=== PATIENT | male | born 1970 | race Caucasian/White ===

== ENCOUNTER → 2016-04-24 | Outpatient (REF) | payer BC | LOC: M SMT 17:07 | PROVIDERS: ATTEND Nurse Practitioner Women's Health | DX: R31.0 Gross hematuria (principal) ==

== ENCOUNTER → 2016-05-02 | Outpatient (CLI) | payer BC ==
[~2016-05-02] MED LIST: ISOVUE-370 76% 100ML VIAL (Q9967) As Ordered ONE
--- NOTE | 2016-05-03 04:27 | REP ---
Clinical: Hematuria. Technique: Axial precontrast, contrast enhanced, and delayed images of the abdomen and pelvis using 100 ml Isovue 370 intravenous contrast material with coronal and sagittal re-formations. Comparison: 07/23/2015. Findings: Evaluation of the urinary tract system demonstrates normal bilateral kidneys, ureters and bladder. Symmetric enhancement and excretion patterns are noted bilaterally. No perinephric stranding, hydroureteronephrosis, intrarenal or obstructing ureteral calculi are identified. No evidence for renal cyst or mass lesion. Liver, spleen, pancreas, gallbladder, and bilateral adrenal glands are normal. The enteric system is without obstruction or acute inflammatory process and a normal terminal ileum and appendix are identified in the right lower quadrant. Scattered sigmoid diverticula noted without acute diverticulitis. Pelvis demonstrates normal bladder and age appropriate prostate/seminal vesicles. Small fat containing right inguinal hernia is unchanged. No pelvic fluid or ascites. No intraperitoneal or retroperitoneal adenopathy. No free air. Vasculature including abdominal aorta appear normal. Surrounding musculoskeletal structures are intact. Lung bases are clear. Impression: Normal urinary tract system. Few scattered sigmoid diverticula without acute diverticulitis. No further acute intra-abdominal or pelvic pathology appreciated. Signed by Yassine Barker MD 05/03/2016 04:17 A
== END ==
LOC: M RAD 16:30
PROVIDERS: ATTEND Nurse Practitioner Women's Health
DX: R31.0 Gross hematuria (principal)
CPT/HCPCS: 74178; Q9967

== ENCOUNTER → 2018-01-04 | Outpatient (REF) | payer BC | LOC: M SFHCPLAZ 12:22 | DX: Z13.220 Encounter for screening for lipoid disorders (principal); Z13.1 Encounter for screening for diabetes mellitus ==

== ENCOUNTER → 2018-03-02 | Outpatient (CLI) | payer OTHER ==
[2018-03-02 17:28] LABS: ALBUMIN/GLOBULIN RATIO 1.33 (1.00-1.93); ALKALINE PHOSPHATASE 124 U/L (45-117); ALT/SGPT 57 U/L (12-78); ANION GAP 9 MEQ/L (8-16); AST/SGOT 26 U/L (7-37); BILIRUBIN,TOTAL 0.9 MG/DL (0.2-1.0); BLOOD UREA NITROGEN 16 MG/DL (7-18); CALCIUM LEVEL 8.5 MG/DL (8.5-10.1); CARBON DIOXIDE LEVEL 34 MEQ/L (21-32); CHLORIDE LEVEL 100 MEQ/L (98-107); CHOLESTEROL LEVEL 178 MG/DL (<200); CHOLESTEROL RISK RATIO 5.933 (<5); CREATININE FOR GFR 1.16 MG/DL (0.70-1.30); GLOMERULAR FILTRATION RATE > 60.0 (>60); GLUCOSE, FASTING 84 MG/DL (70-100); HDL CHOLESTEROL 30 MG/DL (>40); LDL CHOLESTEROL 104 MG/DL (<100); NON-HDL-C 148 MG/DL; POTASSIUM SERUM 3.3 MEQ/L (3.5-5.1); SODIUM LEVEL 143 MEQ/L (136-145); TRIGLYCERIDES LEVEL 221 MG/DL (<150)
== END ==
LOC: M WUC 10:22
DX: Z13.1 Encounter for screening for diabetes mellitus (principal); Z13.220 Encounter for screening for lipoid disorders
CPT/HCPCS: 80053

== ENCOUNTER → 2018-04-13 | Outpatient (CLI) | payer OTHER ==
[2018-04-13 17:41] LABS: BLOOD UREA NITROGEN 16 MG/DL (7-18); CALCIUM LEVEL 9.1 MG/DL (8.5-10.1); CARBON DIOXIDE LEVEL 33 MEQ/L (21-32); CHLORIDE LEVEL 99 MEQ/L (98-107); CREATININE FOR GFR 1.09 MG/DL (0.70-1.30); GLOMERULAR FILTRATION RATE > 60.0 (>60); GLUCOSE, FASTING 102 MG/DL (70-100); POTASSIUM SERUM 3.3 MEQ/L (3.5-5.1); SODIUM LEVEL 139 MEQ/L (136-145)
== END ==
LOC: M WUC 14:16
PROVIDERS: ATTEND Obstetrics & Gynecology
DX: I10 Essential (primary) hypertension (principal)

== ENCOUNTER → 2018-04-16 | Outpatient (REF) | payer OTHER | LOC: M SFHCPLAZ 15:01 | PROVIDERS: ATTEND Family Medicine | DX: I10 Essential (primary) hypertension (principal) ==

== ENCOUNTER → 2018-05-30 | Outpatient (CLI) | payer OTHER ==
[2018-05-30 20:04] LABS: BLOOD UREA NITROGEN 17 MG/DL (7-18); CARBON DIOXIDE LEVEL 33 MEQ/L (21-32); CHLORIDE LEVEL 100 MEQ/L (98-107); CREATININE FOR GFR 1.17 MG/DL (0.70-1.30); GLOMERULAR FILTRATION RATE > 60.0 (>60); GLUCOSE, FASTING 96 MG/DL (70-100); POTASSIUM SERUM 3.4 MEQ/L (3.5-5.1); SODIUM LEVEL 140 MEQ/L (136-145)
== END ==
LOC: M WUC 16:49
PROVIDERS: ATTEND Family Medicine
DX: I10 Essential (primary) hypertension (principal)

== ENCOUNTER 2019-09-19 07:30 | Outpatient (RCR) | payer BC | END 2019-09-30 | LOC: M PT 07:30 | PROVIDERS: ATTEND Obstetrics & Gynecology | DX: R42 Dizziness and giddiness (principal) ==

== ENCOUNTER 2019-10-10 10:16 | Outpatient (RCR) | payer BC ==
[2019-10-10] MEDS ORDERED: SPIR-10 (15:44)
[2019-10-10] MEDS ORDERED: SERT25TA21 (15:44)
[2019-10-10] MEDS ORDERED: MECL-86 (15:44)
[2019-10-10] MEDS ORDERED: VALS1TAB66 (15:44)
[2019-10-10] MEDS ORDERED: CHLO125TA (15:44)
== END 2019-10-31 ==
LOC: M PT 10:16
PROVIDERS: ATTEND Obstetrics & Gynecology
DX: R42 Dizziness and giddiness (principal)

== ENCOUNTER 2019-10-10 15:33 | Emergency (ER) | payer BC ==
[~2019-10-10] VITALS: Ht 177.8 cm; Wt 115.0 kg
[2019-10-10] MEDS ORDERED: MECL-86 (15:44)
[2019-10-10] MEDS ORDERED: VALS1TAB66 (15:44)
[2019-10-10] MEDS ORDERED: CHLO125TA (15:44)
[2019-10-10] MEDS ORDERED: SPIR-10 (15:44)
[2019-10-10] MEDS ORDERED: SERT25TA21 (15:44)
[2019-10-10] MEDS ORDERED: NS 1,000 ML IV ONE (17:30)
[2019-10-10] MEDS ORDERED: KETOROLAC 30 MG/ML 1ML VIAL IV ONE (17:30)
--- NOTE | 2019-10-10 18:00 | REPVR ---
PROCEDURE INFORMATION: Exam: CT Head Without Contrast Exam date and time: 10/10/2019 5:43 PM Age: 48 years old Clinical indication: Dizziness; Additional info: Increasing dizziness TECHNIQUE: Imaging protocol: Computed tomography of the head without contrast. Radiation optimization: All CT scans at this facility use at least one of these dose optimization techniques: automated exposure control; mA and/or kV adjustment per patient size (includes targeted exams where dose is matched to clinical indication); or iterative reconstruction. COMPARISON: No relevant prior studies available. FINDINGS: Brain: No intracranial mass, mass effect or midline shift. No acute intracranial hemorrhage. No CT evidence of acute cortical infarct. Ventricles: Ventricles, cisterns, and sulci are normal in size for age. Bones/joints: No calvarial fracture or destructive process. Sinuses: Imaged paranasal sinuses are normally aerated. Mastoid air cells: Mastoid air cells and middle ear structures are normally aerated. Orbits: Imaged orbits are unremarkable. Soft tissues: No focal extracranial soft tissue swelling. IMPRESSION: No acute or concerning focal intracranial abnormality. Electronically signed by: Rizwan Cummings On 10/10/2019 17:59:54 PM
[2019-10-10 18:34] LABS: BASO # 0.1 10^3/uL (0.0-0.2); BASO % 0.7 % (0.0-1.0); EOS # 0.2 10^3/uL (0.0-0.5); EOS % 2.2 % (0.0-3.0); HEMOGLOBIN 17.9 g/dl (13.5-17.5); LYMPH # 3.3 10^3/uL (1.5-5.0); LYMPH % 33.9 % (24.0-44.0); MEAN CORPUSCULAR HEMOGLOBIN 29.6 pg (27.0-33.0); MEAN CORPUSCULAR HGB CONC 33.8 g/dl (32.0-36.5); MEAN CORPUSCULAR VOLUME 87.6 fl (80.0-96.0); MONO # 0.7 10^3/uL (0.0-0.8); MONO % 7.3 % (0.0-5.0); NEUTROPHILS # 5.3 10^3/uL (1.5-8.5); NEUTROPHILS % 55.6 % (36.0-66.0); PLATELET COUNT, AUTOMATED 250 10^3/uL (150-450); RED BLOOD COUNT 6.05 10^6/uL (4.30-6.10); WHITE BLOOD COUNT 9.6 10^3/uL (4.0-10.0)
[2019-10-10 18:45] LABS: INR 0.94; PARTIAL THROMBOPLASTIN TIME 30.8 SECONDS (25.0-38.4); PROTHROMBIN TIME 12.3 SECONDS (11.8-14.0)
[2019-10-10 19:04] LABS: AMPHETAMINES LEVEL URINE NEGATIVE (NEGATIVE); BARBITURATES URINE NEGATIVE (NEGATIVE); BENZODIAZEPINES URINE NEGATIVE (NEGATIVE); CANNABINOIDS URINE NEGATIVE (NEGATIVE); COCAINE METABOLITE URINE NEGATIVE (NEGATIVE); METHADONE URINE NEGATIVE (NEGATIVE); OPIATES URINE NEGATIVE (NEGATIVE); PHENCYCLIDINE URINE NEGATIVE (NEGATIVE)
[2019-10-10 19:06] LABS: CK-MB VALUE MASS 2.7 NG/ML (<3.6); CPK CREATINE PHOSPHOKINASE 157 U/L (39-308); ETHYL ALCOHOL (ETHANOL) < 0.003 % (0.000-0.010); MB/CK RELATIVE INDEX 1.72 (< OR =4); TROPONIN I < 0.02 NG/ML (< 0.10)
[2019-10-10] MEDS ORDERED: POTASSIUM CHLORIDE 10 MEQ SR TABLET PO ONE (19:30)
[2019-10-10 19:37] VITALS: BP 131/84
--- NOTE | 2019-10-10 21:40 | ECGEPIP ---
[facility] - ED Test Date: 2019-10-10 Pat Name: LEANNA ALEGRE Department: Room: - Gender: Male Occupational Safety And Health Manager: JUNG MORTENSEN : 1970 Requested By: Jeanette Jimenez Order Number: [id number] Reading MD: Rosa Thompson Measurements Intervals [place] Rate: 62 P: 7 AZ: 150 QRS: -1 QRSD: 110 T: 23 QT: 415 QTc: 424 Interpretive Statements SINUS RHYTHM WITH OCCASIONAL VENTRICULAR PREMATURE COMPLEXES INCOMPLETE RIGHT BUNDLE BRANCH BLOCK NO PRIOR Electronically Signed on 10-10-2019 21:39:58 EDT by Rosa Thompson
== END 2019-10-10 19:48 | disposition home or self-care (01) ==
LOC: M ED 15:33
DX: R42 Dizziness and giddiness (principal); I10 Essential (primary) hypertension; Z79.899 Other long term (current) drug therapy
CPT/HCPCS: 70450; 80047; 80307; 82550; 82553; 84484; 85025; 85610; 85730; 93005; 96361; 96374; 99284; G0480; J1885

== ENCOUNTER → 2020-02-23 | Outpatient (CLI) | payer BC ==
[~2020-02-23] MED LIST changes: +CHLO125TA; -ISOVUE-370 76% 100ML VIAL (Q9967) As Ordered ONE; +MECL-86; +SERT25TA21; +SPIR-10; +VALS1TAB66
--- NOTE | 2020-02-25 10:48 | SLEEPCENT ---
DATE: 02/23/2020 ORDERED BY: Yolanda Cuellra NP Nocturnal polysomnography was performed for evaluation of sleep physiology in this patient with a history of fragmented sleep, irregular breathing, and nonrestorative sleep who has comorbidities of hypertension and obesity. 7 hours and 16 minutes of data were reviewed. There were 382.5 minutes of sleep identified. Sleep latency was mildly prolonged at 21 minutes. REM latency was more so prolonged at 126 minutes. Sleep architecture showed some fragmentation. There were two REM cycles noted. Overall sleep efficiency was 89%. REM time was diminished. The electrocardiogram showed a sinus rhythm with an average heart rate of 60 beats per minute. EEG showed some mild coarsening in non-REM stages. No focal events were appreciated and there were normal waveforms for wake and sleep. There were 124 respiratory events identified of 10 seconds in duration or greater for an apnea-hypopnea index of 33.6. The events were primarily obstructive, not exclusive to sleep stage; more frequent, but not exclusive to the supine posture. Arousals from respiratory events occurred 8.5 times per hour and oxygen desaturations were seen below 90%. There was some scattered limb activity, but arousals were few. Snoring was noted throughout the entire study. IMPRESSION: Obstructive sleep apnea syndrome (G47.33), apnea-hypopnea index 33.6. RECOMMENDATION: The patient should be encouraged to return to [facility] for [facility]. In the interim, alcohol and sedative avoidance should be practiced and caution exercised during the operation of motor vehicles. MTDD
== END ==
LOC: M SLEEP 20:00
PROVIDERS: ATTEND Nurse Practitioner Adult Health
DX: G47.30 Sleep apnea, unspecified (principal)

== ENCOUNTER → 2020-02-24 | Outpatient (REF) | payer BC | LOC: M LAB REF 11:18 | PROVIDERS: ATTEND Nurse Practitioner Adult Health | DX: G60.9 Hereditary and idiopathic neuropathy, unspecified (principal) ==

== ENCOUNTER → 2020-03-19 | Outpatient (CLI) | payer BC ==
--- NOTE | 2020-03-29 14:48 | SLEEPCENT ---
NOCTURNAL POLYSOMNOGRAPHY DATE: 03/19/2020 ORDERED BY: Yolanda Cuellar NP Nocturnal polysomnography was performed for the titration of pressure therapy in this patient with obstructive sleep apnea syndrome with apnea-hypopnea index of 13.6. For testing a [employer] full face mask of small size was used, 4 cm of water pressure were applied to the circuit, and the lights were extinguished. 7 hours and 29 minutes of data were reviewed. There were 397 minutes of sleep identified. Sleep latency was normal at 11 minutes. REM latency was essentially normal at 100 minutes. Sleep architecture improved over the course of the study. There were three REM cycles noted. Overall sleep efficiency was 90%. The electrocardiogram showed a sinus rhythm with an average heart rate of 60 beats per minute. EEG showed normal waveforms for wake and sleep. Respiratory events were fully palliated with CPAP at a pressure of +14 and remaining measures of sleep physiology were normal. IMPRESSION: Obstructive sleep apnea syndrome (G47.33). RECOMMENDATION: Nightly use of pressure therapy 14 cm of water.
== END ==
LOC: M SLEEP 20:00
PROVIDERS: ATTEND Nurse Practitioner Adult Health
DX: G47.33 Obstructive sleep apnea (adult) (pediatric) (principal)

== ENCOUNTER → 2020-04-30 | Outpatient (CLI) | payer BC ==
[~2020-04-30] MED LIST changes: -CHLO125TA; +CHLO125TA PO; -MECL-86; +MECL-86 PO; +OMEP-218 PO; -SERT25TA21; +SERT25TA21 PO; -SPIR-10; +SPIR-10 PO; -VALS1TAB66; +VALS1TAB66 PO
== END ==
LOC: M LABSMTC 12:19
PROVIDERS: ATTEND Anesthesiology
DX: Z01.812 Encounter for preprocedural laboratory examination (principal); Z20.822 Contact with and (suspected) exposure to COVID-19

== ENCOUNTER 2020-05-05 11:50 | Day surgery (SDC) | payer BC ==
[~2020-05-05] VITALS: Ht 177.8 cm; Wt 115.7 kg
[~2020-05-05 11:50] MED LIST changes: +NS 1,000 ML IV ONE
--- OUTSIDE RECORDS SUMMARY | 2020-05-05 11:55 | CCD | Continuity of Care Document ---
Author Author Ti Griffith Organization Unknown Address [address] [facility] [address] [place] [address] Phone [phone] Care Team Providers Care Curber Name Role Phone Lynda Griffith [facility] [phone] Problems Description No Information Available Social History Type Date Description Comments Sex Unknown ETOH Use Rarely consumes alcohol Tobacco Use Start: Unknown Patient has never smoked Allergies, Adverse Reactions, Alerts Description No Known Drug Allergies Medications Active Medications SIG Qnty Indications Ordering Provide r Date Sertraline HCL 50mg Tablets Take 1/2 Tablet Daily 90tabs DEDE Berman 12/05/2011 Imitrex 100mg Tablets 1 prn migraine may repeat in 2hrs max 200mg/24hrs 9tabs Lynda Herzog icer, DEDE 11/30/[address] 1 by mouth every day Unknown Spironolactone 25mg Tablets 1 by mouth every day Unknown Valsartan 80mg Tablets 1 by mouth every day Unknown Meclizine HCL 25mg Tablets one tab by mouth every day prn Unknown Chlorthalidone 25mg Tablets take one tablet by mouth every morning Unknown Immunizations Description No Information Available Vital Signs Date Vital Result Comment 02/24/2020 8:53am BP Systolic 120 mmHg BP Diastolic 68 mmHg Heart Rate 68 /min Height 70 inches 5'10" Weight 256.00 lb O2 % BldC Oximetry 98 % BMI (Body Mass Index) 36.7 kg/m2 05/11/2011 2:23pm BP Systolic 130 mmHg BP Diastolic 74 mmHg Weight 220.00 lb Results Test Acquired Date Facility Test Result H/L Range Note Laboratory test finding 02/24/2020 [facility] [address] [place] [address] [phone] Vitamin B12 Level 459 pg/mL Normal 247-911 1 Complete Blood Count 02/24/2020 [facility] [employer] [facility] aneesh bella Early Childhood Education Worker: Dr Abelardo Staton [place], [place] [id number] [phone] WBC 6.6 x10*3/UL 4.1 - 10.9 RBC 5.69 x10*6/UL 4.20 - 6.30 Hemoglobin 17.1 g/dL 12.0 - 18.0 Hematocrit 49.3 % 37.0 - 51.0 MCV 86.6 fL 80.0 - 97.0 MCH 30.1 pg 26.0 - 32.0 MCHC 34.7 g/dL 31.0 - 38.0 RDW 13.1 % 11.6 - 13.7 PLT 231 x10*3/UL 140 - 440 MPV 9.5 FL 7.8 - 11.0 Lymph % 33.8 % 10.0 - 58.5 Mid % 7.8 % 1.7 - 9.3 Neut % 58.4 % 37.0 - 92.0 Lymph # 2.2 x10*3/UL 0.6 - 4.1 Mid # 0.5 x10*3/UL 0.1 - 0.6 Neut # 3.9 x10*3/UL 2.0 - 7.8 Comprehensive Chem Profile 02/24/2020 [facility] Perkins Early Childhood Education Worker: [place] [address] [phone] Glucose 94 mg/dL 74 - 99 2 BUN 19 mg/dL High 7 - 18 Creatinine 1.2 mg/dL 0.6 - 1.3 Sodium 140 mEq/L 136 - 145 Potassium 3.7 mEq/L 3.5 - 5.1 Chloride 101 mEq/L 98 - 107 Carbon Dioxide 34 mEq/L High 21 - 32 Calcium 9.2 mg/dL 8.5 - 10.1 Alk. Phosphatase 126 mg/dL High 46 - 116 Total Bilirubin 0.6 mg/dL 0.2 - 1.0 Ast (Sgot) 21 U/L 15 - 37 Alt (SGPT) 51 U/L 12 - 78 Albumin 4.0 g/dL 3.4 - 5.0 Total Protein 7.1 g/dL 6.4 - 8.2 A/G Ratio 1.29 CALC 1.00 - 1.90 GFR >= 60 mL/min >60 GFR >= 60 mL/min >60 3 Lipid Profile 02/24/2020 [facility] Early Childhood Education Worker: Dr Abelardo Staton [place], [place] [id number] [phone] Cholesterol 188 mg/dL 131 - 200 Triglycerides 236 mg/dL High 30 - 150 HDL Cholesterol 30 mg/dL Low 35 - 60 LDL (Calculated) 111 CALC 50 - 159 Laboratory test finding 02/24/2020 [facility] Early Childhood Education Worker: [place] [address] [phone] Thyroid Stimulating Hormone 0.99 uIU/mL 0.3 6 - 3.74 1 VITAMIN B12 NORMAL RANGE NORMAL 247 - 911 PG/ML INDETERMINATE 211 - 246 PG/ML DEFICIENT LESS THAN 211 PG/ML 2 100-125 mg/dL PRE-DIABET ES/FASTING >126 mg/dL DIABETES/FASTING 3 CHRONIC KIDNEY DISEASE STAGI NG PER NKF STAGE I & II GFR >= 60 NORMAL TO MILDLY DECREASED STAGE III GFR 30-59 MODERATELY DECREASED STAGE IV GFR 15-29 SEVERELY DECREASED STAGE V GFR <15 VERY LITTLE GFR LEFT ESRD GFR <15 ON ELECTRICIAN CONSTRUCTOR SUPERVISOR Procedures Description No Information Available Medical Devices Description No Information Available Encounters Type Date Location Provider Dx Diagnosis Office Visit 02/24/2020 9:00a [facility] DEDE Berman Z00.00 Encntr for general adult medical exam w/ o abnormal findings I10 Essential (primary) hyperten graciela G60.9 Hereditary and idiopathic ne uropathy, unspecified F41.9 Anxiety disorder, unspecifie d G43.909 Migraine, unsp, not intracta ble, without status migrainosus K21.9 Gastro-esophageal reflux dis ease without esophagitis Assessments Date Code Description Provider 02/24/2020 Z00.00 Encounter for genera l adult medical examination without abnormal findings DEDE Berman 02/24/2020 I10 Essential (primary) hypertension DEDE Berman 02/24/2020 G60.9 Hereditary and idiopathic neurop athy, unspecified DEDE Berman 02/24/2020 F41.9 Anxiety disorder, unspecified Na DEDE Trujillo 02/24/2020 G43.909 Migraine, unspecifie d, not intractable, without status migrainosus DEDE Berman 02/24/2020 K21.9 Gastro-esophageal reflux disease without esophagitis DEDE Berman Plan of Treatment Future Appointment(s):* 08/24/2020 9:00 am - DEDE Berman at [facility] 02/24/2020 - DEDE Berman* Z00.00 Encounter for general adult medical examination without abnormal findings * I10 Essential (primary) hypertension * G60.9 Hereditary and idiopathic neuropathy, unspecified * F41.9 Anxiety disorder, unspecified * G43.909 Migraine, unspecified, not intractable, without status migrainosus * K21.9 Gastro-esophageal reflux disease without esophagitis Functional Status Description No Information Available Mental Status Description No Information Available Referrals Refer to Reason for Referral Status Appt Date Faheem Laird MD PIGMENT PRESSER CONSULT FOR SCREENING COLONOSCOPY Pat ient Notified 04/27/[address] [place] [address] [phone]
--- OUTSIDE RECORDS SUMMARY | 2020-05-05 11:55 | CCD ---
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 077539169 Problem Erectile dysfunction, unspecified erectile dysfunction typ e N52.9 Active 715789855 Problem Essential hypertension I10 Active [id number] ALLERGIES No Known Allergies ENCOUNTERS from 1970 to 2020-03-06 Encounter Location Date Provider Diagnosis [facility] Resident [address] [place] [address] Mar, Amarjit Pires IMMUNIZATIONS No Information SOCIAL HISTORY Tobacco Use: Social History Observation Description Date Details (start date - stop date) Never Smoker Sex Assigned At : Social History Observation Description Sex Assigned At Unknown Education: Question Answer Notes Level of Education: High School Audit Question Answer Notes Total Score: 0 Interpretation: Alcohol Education Sexual Hx: Question Answer Notes Had sex in the last 12 months (vaginal, oral, or anal)? Yes Have you ever had an STD? No with Women only Use protection? No Drug and Alcohol Question Answer Notes Total Score: 0 Interpretation: No problems reported Alcohol Screening: Question Answer Notes Did you have a drink containing alcohol in the past year? Ye s Points 1 Interpretation Negative How many drinks did you have on a typica l day when you were drinking in the past year? 1 or 2 (0 points) How often did you have a drink containing alcohol in t he past year? Monthly or less (1 point) BMI Care Goal Follow-Up Question Answer Notes Above Normal BMI Follow-Up Dietary management educatio n, guidance, and counseling Tobacco Use: Question Answer Notes Are you a: never smoker REASON FOR REFERRAL No Information VITAL SIGNS No information MEDICATIONS Medication SIG (Take, Route, Frequency, Duration) Notes Start Da te End Date Status Claritin-D 12 Hour 5-120 MG 1 tablet as needed Orally every 12 hrs for 7 day(s) Mar, Active Valsartan 80 MG take one tablet by mouth shivani ry day Orally Once a day for 30 days Active Chlorthalidone 25 MG TAKE ONE TABLET BY MOUTH EVERY MORNING WITH FOOD for 30 Active Spironolactone 25 MG 1 tablet Orally Once a day for 30 Active Omeprazole 20MG 1 cap orally Daily A ctive Chlorthalidone 25 MG TAKE ONE TABLET BY MOUTH EVERY MORNING WITH FOOD for 30 Active Meclizine HCl 25 MG TAKE ONE TABLET BY MOUTH EVERY DAY NEEDED for 30 Active Sertraline HCl 25 mg take one tablet by mouth every day orally Asael y for 30 Active PROCEDURES No Information RESULTS No Results REASON FOR VISIT No Information MEDICAL (GENERAL) HISTORY Type Description Date Medical History Essential hypertension Medical History 1977 Diagnosed Jevenile Rheuamtoid Arthr itis Medical History 1992 Collapsed Lung Medical History 1999 Pneumonia + Collapsed Lung Medical History Tarsal Tunnel of Right Foot Medical History [address] Conroy Medical History Severe Ragweed allergy (seasonal allergy ) Medical History Depression according to Medical History hyperlipidemia - 10 year ASCVD 3.6% on Medical History Gross Hematuria Medical History Tearfulness Medical History Noncompliance of patient with dietary re gimen Surgical History denies Hospitalization History Collapsed Lung chest tubes 1992 Goals Section No Information Health Concerns No Information MEDICAL EQUIPMENT No Information MENTAL STATUS No Information FUNCTIONAL STATUS No Information ASSESSMENTS No Information PLAN OF TREATMENT Medication Medication Name Sig Start Date Stop Date Chlorthalidone 25 MG TAKE ONE TABLET BY MOUTH EVERY MORNING WITH FOOD for 30 Meclizine HCl 25 MG TAKE ONE TABLET BY MOUTH EVERY DAY NEEDED for 30 Insurance Providers Payer Name Payer Address Payer Phone Insured Name Patient Relati onship to Insured Coverage Start Date Coverage End Date [facility] [address] [facility] [phone] Eleonora Alegre
--- OUTSIDE RECORDS SUMMARY | 2020-05-05 11:55 | CCD | Continuity of Care Document ---
Author Author Ti LAIRD M.D. Organization Unknown Address [address] [place] [address] Phone [phone] Care Team Providers Care Surveillance Technician Name Role Phone Lynda Griffith AUTM [phone] Problems Active Problems Provider Date Screening for malignant neoplasm of colon Faheem dave M.D. Onset: 04/27/2020 Social History Type Date Description Comments Sex Unknown ETOH Use Denies alcohol use Tobacco Use Start: Unknown Patient has never smoked Allergies, Adverse Reactions, Alerts Description No Known Drug Allergies Medications Active Medications SIG Qnty Indications Ordering Provide r Date Sutab [id number] Tablets as directed 1box Faheem Laird M.D. 04/27/2020 Valsartan 80mg Tablets Take One Tablet By Mouth Every Day Unknown Spironolactone 25mg Tablets Take One Tablet By Mouth Every Day Unknown Sertraline HCL 25mg Tablets Take One Tablet By Mouth Every Day Unknown Chlorthalidone 25mg Tablets Take One Tablet By Mouth Every Morning With Food Unknown Omeprazole 20mg Capsules DR Unknown Immunizations Description No Information Available Vital Signs Date Vital Result Comment 04/27/2020 2:12pm Height 70 inches 5'10" Weight 258.00 lb BP Systolic 129 mmHg BP Diastolic 83 mmHg Heart Rate 62 /min BMI (Body Mass Index) 37.0 kg/m2 Weight 117.029 kg Body Temperature 98.1 F Results Description No Information Available Procedures Description No Information Available Medical Devices Description No Information Available Encounters Type Date Location Provider Dx Diagnosis Office Visit 04/27/2020 2:00p Main Office Faheem Laird M.D. Z 12.11 Encounter for screening for malignant neoplasm of colon Assessments Date Code Description Provider 04/27/2020 Z12.11 Screening for malignant neoplasm of colon Faheem Laird M.D. Plan of Treatment Future Appointment(s):* 05/04/2020 6:45 am - [facility] at Main Office * 05/05/2020 1:45 pm - Faheem Laird M.D. at Main Office 04/27/2020 - Faheem Laird M.D.* Z12.11 Screening for malignant neoplasm of colon* Comments:* 49 yo wm who presents for a screening colonoscopy. No c/o abdominal pain, weight loss, change in bowel habits, or rectal bleeding. No family h/o colon cancer. No h/o chest pain, or sob. Plan:1.Schedule patient for a colonoscopy.2.Informed consent given to the patient.3.Pt. advised to stop aspirin,plavix, and anticoagulants at least 3 to 7 days prior to the procedure. Functional Status Description No Information Available Mental Status Description No Information Available Referrals Description No Information Available
--- OUTSIDE RECORDS SUMMARY | 2020-05-05 11:55 | CCD | Continuity of Care Document ---
Author Author Ti Griffith Organization Unknown Address [address] [facility] [address] [place] [address] Phone [phone] Care Team Providers Care Doctor Assistant Name Role Phone Lynda Griffith [facility] [phone] Problems Description No Information Available Social History [...] H/L Range Note Laboratory test finding 02/24/2020 [facility] [address] [place] [address] [phone] Vitamin B12 Level 459 pg/mL Normal 247-911 1 Complete Blood Count 02/24/2020 [facility] [employer] aneesh bella Optical Glass Wet Inspector: Dr Abelardo Staton [place], [place] [id number] [phone] WBC 6.6 x10*3/UL 4.1 - 10.9 RBC [...] 2.0 - 7.8 Comprehensive Chem Profile 02/24/2020 [facility] Optical Glass Wet Inspector: [place] [address] [phone] Glucose 94 mg/dL 74 - 99 2 [...] 60 mL/min >60 3 Lipid Profile 02/24/2020 [facility] Optical Glass Wet Inspector: Dr Abelardo Staton [place], [place] [id number] [phone] Cholesterol 188 mg/dL 131 - 200 Triglycerides 236 mg/dL High 30 - 150 HDL Cholesterol 30 mg/dL Low 35 - 60 LDL (Calculated) 111 CALC 50 - 159 Laboratory test finding 02/24/2020 [facility] Optical Glass Wet Inspector: [place] [address] [phone] Thyroid Stimulating Hormone 0.99 uIU/mL 0.3 6 [...] LITTLE GFR LEFT ESRD GFR <15 ON CLAIMS MANAGER Procedures Description No Information Available Medical Devices Description No Information Available Encounters Description No Information Available Assessments Date Code Description Provider 02/24/2020 Z00.01 Encounter for abraham l adult medical examination with abnormal findings DEDE Berman 02/24/2020 I10 Essential (primary) hypertension DEDE Berman 02/24/2020 G60.9 Hereditary and idiopathic neurop athy, unspecified DEDE Berman 02/24/2020 F41.9 Anxiety disorder, unspecified Na DEDE Trujillo 02/24/2020 G43.909 Migraine, unspecifie d, not intractable, without status migrainosus DEDE Berman 02/24/2020 K21.9 Gastro-esophageal reflux disease without esophagitis DEDE Berman Plan of Treatment Future Appointment(s):* 08/24/2020 9:00 am - DEDE Berman at [facility] 02/24/2020 - Lynda Griffith, DEDE* Z00.01 Encounter for general adult medical examination with abnormal findings * I10 Essential (primary) hypertension * G60.9 Hereditary and idiopathic neuropathy, unspecified * F41.9 Anxiety disorder, unspecified * G43.909 Migraine, unspecified, not intractable, without status migrainosus * K21.9 Gastro-esophageal reflux disease without esophagitis Functional Status Description No Information Available Mental Status Description No Information Available Referrals Description No Information Available
--- OUTSIDE RECORDS SUMMARY | 2020-05-05 11:56 | CCD | Continuity of Care Document ---
Author Author Ti Griffith Organization Unknown Address [address] [facility] [address] [place] [address] Phone [phone] Care Team Providers Care Mother Baby Rn Name Role Phone Lynda Griffith [facility] [phone] Problems Description No Information Available Social History [...] H/L Range Note Laboratory test finding 02/24/2020 [facility] [address] [place] [address] [phone] Vitamin B12 Level <pending> Laboratory test finding 02/24/2020 [facility] [employer] aneesh echeverria Dye House Supervisor: [place] [address] [phone] TSH <pending> Procedures Description No Information Available Medical Devices Description No Information Available Encounters Description No Information Available Assessments Date Code Description Provider 02/24/2020 Z00.01 Encounter for [facility] adult medical examination with abnormal findings DEDE [...] 08/24/2020 9:00 am - DEDE Berman at [facility] 02/24/2020 - DEDE Berman* Z00.01 Encounter for general adult medical examination [...]
--- OUTSIDE RECORDS SUMMARY | 2020-05-05 11:56 | CCD | Continuity of Care Document ---
Author Author Ti Griffith Organization Unknown Address [address] [facility] [address] [place] [address] Phone [phone] Care Team Providers Care Food Dehydrator Operator Name Role Phone Lynda Griffith [facility] [phone] Problems Description No Information Available Social History [...] H/L Range Note Laboratory test finding 02/24/2020 [facility] [address] [place] [address] [phone] Vitamin B12 Level 459 pg/mL Normal 247-911 1 Complete Blood Count 02/24/2020 [place] Environmental Conservation Officer aneesh bella Cloth Handler: Dr Abelardo Staton [place], [place] [id number] [phone] WBC 6.6 x10*3/UL 4.1 - 10.9 RBC [...] 2.0 - 7.8 Comprehensive Chem Profile 02/24/2020 [place] aneesh Perkins Cloth Handler: [place] [address] [phone] Glucose 94 mg/dL 74 - 99 2 [...] 60 mL/min >60 3 Lipid Profile 02/24/2020 [facility] Cloth Handler: Dr Abelardo Staton [place], [place] [id number] [phone] Cholesterol 188 mg/dL 131 - 200 Triglycerides 236 mg/dL High 30 - 150 HDL Cholesterol 30 mg/dL Low 35 - 60 LDL (Calculated) 111 CALC 50 - 159 Laboratory test finding 02/24/2020 [place] [employer] [facility] Cloth Handler: [place] [address] [phone] Thyroid Stimulating Hormone 0.99 uIU/mL 0.3 6 [...] LITTLE GFR LEFT ESRD GFR <15 ON STILL CLEANER Procedures Description No Information Available Medical Devices [...] 08/24/2020 9:00 am - DEDE Berman at [facility] 02/24/2020 - Lynda Griffith, DEDE* [...]
--- OUTSIDE RECORDS SUMMARY | 2020-05-05 11:56 | CCD ---
Author Author [facility] Organization [facility] Address Unknown Phone Unavailable Care Team Providers Care Life Claims Examiner Name Role Phone Silvia Laird MD Unavailable Unavailable Silvia Laird MD Unavailable Unavailable Silvia Laird MD Unavailable Unavailable Silvia Laird MD Unavailable Unavailable Silvia Laird MD Unavailable Unavailable Silvia Laird MD Unavailable Unavailable Silvia Laird MD Unavailable Unavailable Silvia Laird MD Unavailable Unavailable Silvia Laird MD Unavailable Unavailable Silvia Laird MD Unavailable Unavailable Silvia Laird MD Unavailable Unavailable Silvia Laird MD Unavailable Unavailable Silvia Laird MD Unavailable Unavailable Silvia Laird MD Unavailable Unavailable Silvia Laird MD Unavailable Unavailable Silvia Laird MD Unavailable Unavailable Silvia Laird MD Unavailable Unavailable Silvia Laird MD Unavailable Unavailable Silvia Laird MD Unavailable Unavailable Silvia Laird MD Unavailable Unavailable Silvia Laird MD Unavailable Unavailable Silvia Laird MD Unavailable Unavailable Silvia Laird MD Unavailable Unavailable Silvia Laird MD Unavailable Unavailable Silvia Laird MD Unavailable Unavailable Silvia Laird MD Unavailable Unavailable Silvia Laird MD Unavailable Unavailable Silvia Laird MD Unavailable Unavailable Silvia Laird MD Unavailable Unavailable Silvia Laird MD Unavailable Unavailable Silvia Laird MD Unavailable Unavailable Silvia Laird MD Unavailable Unavailable Silvia Laird MD Unavailable Unavailable Silvia Laird MD Unavailable Unavailable Silvia Laird MD Unavailable Unavailable Silvia Laird MD Unavailable Unavailable Silvia Laird MD Unavailable Unavailable Silvia Laird MD Unavailable Unavailable Silvia Laird MD Unavailable Unavailable Silvia Laird MD Unavailable Unavailable Silvia Laird MD Unavailable Unavailable Silvia Laird MD Unavailable Unavailable Silvia Laird MD Unavailable Unavailable Silvia Laird MD Unavailable Unavailable Silvia Laird MD Unavailable Unavailable Silvia Laird MD Unavailable Unavailable Silvia Laird MD Unavailable Unavailable Silvia Laird MD Unavailable Unavailable Silvia Laird MD Unavailable Unavailable SONIA, J Lynda ANP Unavailable Unavailable SONIA, J Lynda ANP Unavailable Unavailable SONIA, J Lynda ANP Unavailable Unavailable SONIA, J Lynda ANP Unavailable Unavailable SONIA, J Lynda ANP Unavailable Unavailable SONIA, J Lynda ANP Unavailable Unavailable SONIA, J Lynda ANP Unavailable Unavailable SONIA, J Lynda ANP Unavailable Unavailable SONIA, J Lynda ANP Unavailable Unavailable SONIA, J Lynda ANP Unavailable Unavailable SONIA, J Lynda ANP Unavailable Unavailable SONIA, J Lynda ANP Unavailable Unavailable SONIA, J Lynda ANP Unavailable Unavailable SONIA, J Lynda ANP Unavailable Unavailable SONIA, J Lynda ANP Unavailable Unavailable SONIA, J Lynda ANP Unavailable Unavailable SONIA, J Lynda ANP Unavailable Unavailable SONIA, J Lynda ANP Unavailable Unavailable SONIA, J Lynda ANP Unavailable Unavailable SONIA, J Lynda ANP Unavailable Unavailable SONIA, J Lynda ANP Unavailable Unavailable SONIA, J Lynda ANP Unavailable Unavailable SONIA, J Lynda ANP Unavailable Unavailable SONIA, J Lynda ANP Unavailable Unavailable SONIA, J Lynda ANP Unavailable Unavailable SONIA, J Lynda ANP Unavailable Unavailable SONIA, J Lynda ANP Unavailable Unavailable SONIA, J Lynda ANP Unavailable Unavailable SONIA, J Lynda ANP Unavailable Unavailable SONIA, J Lynda ANP Unavailable Unavailable SONIA, J Lynda ANP Unavailable Unavailable SONIA, J Lynda ANP Unavailable Unavailable SONIA, J Lynda ANP Unavailable Unavailable SONIA, J Lynda ANP Unavailable Unavailable SONIA, J Lynda ANP Unavailable Unavailable SONIA, J Lynda ANP Unavailable Unavailable SONIA, J Lynda ANP Unavailable Unavailable SONIA, J Lynda ANP Unavailable Unavailable SONIA, J Lynda ANP Unavailable Unavailable SONIA, J Lynda ANP Unavailable Unavailable SONIA, J Lynda ANP Unavailable Unavailable SONIA, J Lynda ANP Unavailable Unavailable SONIA, J Lynda ANP Unavailable Unavailable SONIA, J Lynda ANP Unavailable Unavailable SONIA, J Lynda ANP Unavailable Unavailable SONIA, J Lynda ANP Unavailable Unavailable SONIA, J Lynda ANP Unavailable Unavailable SONIA, J Lynda ANP Unavailable Unavailable SONIA, J Lynda ANP Unavailable Unavailable SONIA, J Lynda ANP Unavailable Unavailable OSNIA, J Lynda ANP Unavailable Unavailable SONIA, J Lynda ANP Unavailable Unavailable SONIA, J Lynda ANP Unavailable Unavailable SONIA, J Lynda ANP Unavailable Unavailable SONIA, J Lynda ANP Unavailable Unavailable SONIA, J Lynda ANP Unavailable Unavailable SONIA, J Lynda ANP Unavailable Unavailable SONIA, J Lynda ANP Unavailable Unavailable SONIA, J Lynda ANP Unavailable Unavailable SONIA, J Lynda ANP Unavailable Unavailable SONIA, J Lynda ANP Unavailable Unavailable SONIA, J Lynda ANP Unavailable Unavailable SONIA, J Lynda ANP Unavailable Unavailable SONIA, J Lynda ANP Unavailable Unavailable SONIA, J Lynda ANP Unavailable Unavailable SONIA, J Lynda ANP Unavailable Unavailable Re-disclosure Warning The records that you are about to access may contain information from federally-assisted alcohol or drug abuse programs. If such information is present, then the following federally mandated warning applies: This information has been disclosed to you from records protected by federal confidentiality rules (42 CFR part 2). The federal rules prohibit you from making any further disclosure of this information unless further disclosure is expressly permitted by the written consent of the person to whom it pertains or as otherwise permitted by 42 CFR part 2. A general authorization for the release of medical or other information is NOT sufficient for this purpose. The Federal rules restrict any use of the information to criminally investigate or prosecute any alcohol or drug abuse patient.The records that you are about to access may contain highly sensitive health information, the redisclosure of which is protected by Article 27-F of the [facility] Public Health law. If you continue you may have access to information: Regarding HIV / AIDS; Provided by facilities licensed or operated by the [facility] Office of Mental Health; or Provided by the [facility] Office for People With Developmental Disabilities. If such information is present, then the following [facility] mandated warning applies: This information has been disclosed to you from confidential records which are protected by state law. State law prohibits you from making any further disclosure of this information without the specific written consent of the person to whom it pertains, or as otherwise permitted by law. Any unauthorized further disclosure in violation of state law may result in a fine or senior care sentence or both. A general authorization for the release of medical or other information is NOT sufficient authorization for further disc losure. Family History Family Member Name Family Member Gender Family Member Status Date o f Status Description Data Source(s) Unknown Male Problem MEDENT ([facility]) Encounters Encounter Providers Location Date Indications Data Source(s ) Outpatient Attender: Faheem Laird MD Main Office 04/27/2020 01:00:00 PM EST [facility] ([facility]) Unknown [address] [facility] [id number] 03/05/2020 12:00:00 AM EST eCW1 ([facility]) Outpatient Attender: Lynda Alcazar 08:00:00 AM EST MEDENT ([facility] ) Outpatient [address] [facility] [id number] 09/01/2019 12:00:00 AM EDT eCW1 ([facility]) [facility] [address] [place] [phone] 09/01/2019 12:00:00 AM EDT eCW1 ([facility]) [facility] [address] [place] [address] Y [address] 06/09/2019 12:00:00 AM EDT eCW1 ([facility]) [facility] [address] [place] [address] Y [address] 04/14/2019 12:00:00 AM EST eCW1 ([facility]) [facility] [address] [place] [address] Y [address] 04/04/2019 12:00:00 AM EST eCW1 ([facility]) [facility] Res[facility] [address] [place] [address] 04/04/2019 12:00:00 AM EST eCW1 ([facility]) [facility] [address] [place] [address] 03/19/2019 12:00:00 AM EST eCW1 ([facility]) [facility] [place] [address] [facility] [address] 03/12/2019 12:00:00 AM EST eCW1 ([facility]) [facility] [address] [place] [address] 03/11/2019 12:00:00 AM EST eCW1 ([facility]) Medications Medication Brand Name Start Date Product Form Dose Route Admi nistrative Instructions Pharmacy Instructions Status Indications Reaction Description Data Source(s) 25 mg 05/01/2020 12:00:00 AM EST tablet 30 TAKE ONE TABLET BY MOUTH EVERY MORNING WITH FOOD TAKE ONE TABLET BY MOUTH EVERY MORNING WITH FOOD SOLD: 05/02/2020 [facility] Sutab Sutab 04/27/2020 12:00:00 AM EST active MEDENT ([facility]) 25 mg 04/04/2020 12:00:00 AM EST tablet 30 TAKE ONE TABLET BY MOUTH EVERY MORNING WITH FOOD TAKE ONE TABLET BY MOUTH EVERY MORNING WITH FOOD SOLD: 04/05/2020 [facility] Meclizine Hydrochloride 25 MG Oral Tablet MECLIZINE HCL 03/29/2020 12:00:00 AM EST tablet 30 TAKE ONE TABLET BY MOUTH MALINA RY DAY TAKE ONE TABLET BY MOUTH EVERY DAY SOLD: 03/29/2020 [facility] 25 mg 02/25/2020 12:00:00 AM EST tablet 30 TAKE ONE TABLET BY MOUTH EVERY MORNING WITH FOOD TAKE ONE TABLET BY MOUTH EVERY MORNING WITH FOOD SOLD: 03/01/2020 [facility] Meclizine Hydrochloride 25 MG Oral Tablet MECLIZINE HCL 01/26/2020 12:00:00 AM EDT tablet 30 TAKE ONE TABLET BY MOUTH MALINA RY DAY NEEDED TAKE ONE TABLET BY MOUTH EVERY DAY NEEDED SOLD: 01/28/2020 [facility] Meclizine Hydrochloride 25 MG Oral Tablet MECLIZINE HCL 01/26/2020 12:00:00 AM EDT tablet 30 TAKE ONE TABLET BY MOUTH MALINA DAY NEEDED TAKE ONE TABLET BY MOUTH EVERY DAY NEEDED SOLD: 03/01/2020 [facility] 25 mg 12/31/2019 12:00:00 AM EDT tablet 30 TAKE ONE TABLET BY MOUTH EVERY MORNING WITH FOOD TAKE ONE TABLET BY MOUTH EVERY MORNING WITH FOOD SOLD: 01/28/2020 [facility] 25 mg 12/31/2019 12:00:00 AM EDT tablet 30 TAKE ONE TABLET BY MOUTH EVERY MORNING WITH FOOD TAKE ONE TABLET BY MOUTH EVERY MORNING WITH FOOD SOLD: 01/01/2020 [facility] Meclizine Hydrochloride 25 MG Oral Tablet MECLIZINE HCL 11/25/2019 12:00:00 AM EDT tablet 30 TAKE ONE TABLET BY MOUTH MALINA NEEDED TAKE ONE TABLET BY MOUTH EVERY DAY NEEDED SOLD: 12/28/2019 [facility] Meclizine Hydrochloride 25 MG Oral Tablet MECLIZINE HCL 11/25/2019 12:00:00 AM EDT tablet 30 TAKE ONE TABLET BY MOUTH MALINA NEEDED TAKE ONE TABLET BY MOUTH EVERY DAY NEEDED SOLD: 11/28/2019 [facility] 25 mg 11/24/2019 12:00:00 AM EDT tablet 90 TAKE ONE TABLET BY MOUTH EVERY DAY TAKE ONE TABLET BY MOUTH EVERY DAY SOLD: 11/24/2019 [facility] 25 mg 11/24/2019 12:00:00 AM EDT tablet 90 TAKE ONE TABLET BY MOUTH EVERY DAY TAKE ONE TABLET BY MOUTH EVERY DAY SOLD: 11/28/2019 [facility] 25 mg 11/24/2019 12:00:00 AM EDT tablet 90 TAKE ONE TABLET BY MOUTH EVERY DAY TAKE ONE TABLET BY MOUTH EVERY DAY SOLD: 03/01/2020 [facility] 25 mg 11/24/2019 12:00:00 AM EDT tablet 90 TAKE ONE TABLET BY MOUTH EVERY DAY TAKE ONE TABLET BY MOUTH EVERY DAY SOLD: 03/01/2020 [facility] 80 mg 11/12/2019 12:00:00 AM EDT tablet 90 TAKE ONE TABLET BY MOUTH EVERY DAY TAKE ONE TABLET BY MOUTH EVERY DAY SOLD: 11/12/2019 [facility] 80 mg 11/12/2019 12:00:00 AM EDT tablet 90 TAKE ONE TABLET BY MOUTH EVERY DAY TAKE ONE TABLET BY MOUTH EVERY DAY SOLD: 02/09/2020 [facility] 1 % 11/05/2019 12:00:00 AM EDT cream 30 APPLY TO AFFECTED AREA(S) TWO TIMES A DAY APPLY TO AFFECTED AREA(S) TWO TIMES A DAY SOLD: 11/07/2019 [facility] 25 mg 10/31/2019 12:00:00 AM EDT tablet 30 TAKE ONE TABLET BY MOUTH EVERY DAY TAKE ONE TABLET BY MOUTH EVERY DAY SOLD: 10/31/2019 [facility] 25 mg 10/31/2019 12:00:00 AM EDT tablet 30 TAKE ONE TABLET BY MOUTH EVERY DAY TAKE ONE TABLET BY MOUTH EVERY DAY SOLD: 10/31/2019 [facility] 25 mg 09/02/2019 12:00:00 AM EDT tablet 30 TAKE ONE TABLET BY MOUTH EVERY DAY NEEDED TAKE ONE TABLET BY MOUTH EVERY DAY NEEDED SOLD: 10/07/2019 [facility] 25 mg 09/02/2019 12:00:00 AM EDT tablet 30 TAKE ONE TABLET BY MOUTH EVERY DAY NEEDED TAKE ONE TABLET BY MOUTH EVERY DAY NEEDED SOLD: 09/05/2019 [facility] 25 mg 09/02/2019 12:00:00 AM EDT tablet 30 TAKE ONE TABLET BY MOUTH EVERY DAY NEEDED TAKE ONE TABLET BY MOUTH EVERY DAY NEEDED SOLD: 11/07/2019 [facility] Meclizine Hydrochloride 25 MG Oral Tablet Meclizine HC l 25 MG Meclizine HCl 25 MG 09/01/2019 12:00:00 AM EDT 1.0 {tablet_as_needed} active Meclizine HCl 25 MG eCW1 ([facility]) 25 mg 07/16/2019 12:00:00 AM EDT tablet 30 TAKE ONE TABLET BY MOUTH EVERY MORNING WITH FOOD TAKE ONE TABLET BY MOUTH EVERY MORNING WITH FOOD SOLD: 09/22/2019 [facility] 25 mg 07/16/2019 12:00:00 AM EDT tablet 30 TAKE ONE TABLET BY MOUTH EVERY MORNING WITH FOOD TAKE ONE TABLET BY MOUTH EVERY MORNING WITH FOOD SOLD: 08/22/2019 [facility] 25 mg 07/16/2019 12:00:00 AM EDT tablet 30 TAKE ONE TABLET BY MOUTH EVERY MORNING WITH FOOD TAKE ONE TABLET BY MOUTH EVERY MORNING WITH FOOD SOLD: 11/24/2019 [facility] 25 mg 07/16/2019 12:00:00 AM EDT tablet 30 TAKE ONE TABLET BY MOUTH EVERY MORNING WITH FOOD TAKE ONE TABLET BY MOUTH EVERY MORNING WITH FOOD SOLD: 10/24/2019 [facility] 25 mg 07/16/2019 12:00:00 AM EDT tablet 30 TAKE ONE TABLET BY MOUTH EVERY MORNING WITH FOOD TAKE ONE TABLET BY MOUTH EVERY MORNING WITH FOOD SOLD: 07/21/2019 [facility] 80 mg 07/08/2019 12:00:00 AM EDT tablet 30 TAKE ONE TABLET BY MOUTH EVERY DAY TAKE ONE TABLET BY MOUTH EVERY DAY SOLD: 10/07/2019 [facility] 80 mg 07/08/2019 12:00:00 AM EDT tablet 30 TAKE ONE TABLET BY MOUTH EVERY DAY TAKE ONE TABLET BY MOUTH EVERY DAY SOLD: 08/12/2019 [facility] 80 mg 07/08/2019 12:00:00 AM EDT tablet 30 TAKE ONE TABLET BY MOUTH EVERY DAY TAKE ONE TABLET BY MOUTH EVERY DAY SOLD: 07/10/2019 [facility] 25 mg 07/07/2019 12:00:00 AM EDT tablet 30 TAKE ONE TABLET BY MOUTH EVERY DAY TAKE ONE TABLET BY MOUTH EVERY DAY SOLD: 07/10/2019 [facility] 25 mg 07/07/2019 12:00:00 AM EDT tablet 30 TAKE ONE TABLET BY MOUTH EVERY DAY TAKE ONE TABLET BY MOUTH EVERY DAY SOLD: 09/12/2019 [facility] 25 mg 07/07/2019 12:00:00 AM EDT tablet 30 TAKE ONE TABLET BY MOUTH EVERY DAY TAKE ONE TABLET BY MOUTH EVERY DAY SOLD: 09/12/2019 [facility] 25 mg 07/07/2019 12:00:00 AM EDT tablet 30 TAKE ONE TABLET BY MOUTH EVERY DAY TAKE ONE TABLET BY MOUTH EVERY DAY SOLD: 08/12/2019 [facility] 25 mg 07/07/2019 12:00:00 AM EDT tablet 30 TAKE ONE TABLET BY MOUTH EVERY DAY TAKE ONE TABLET BY MOUTH EVERY DAY SOLD: 08/12/2019 [facility] 25 mg 07/07/2019 12:00:00 AM EDT tablet 30 TAKE ONE TABLET BY MOUTH EVERY DAY TAKE ONE TABLET BY MOUTH EVERY DAY SOLD: 07/10/2019 [facility] 25 mg 06/09/2019 12:00:00 AM EDT tablet 30 TAKE ONE TABLET BY MOUTH EVERY MORNING WITH FOOD TAKE ONE TABLET BY MOUTH EVERY MORNING WITH FOOD SOLD: 06/10/2019 [facility] 80 mg 06/07/2019 12:00:00 AM EST tablet 30 TAKE ONE TABLET BY MOUTH EVERY DAY TAKE ONE TABLET BY MOUTH EVERY DAY SOLD: 06/10/2019 [facility] 25 mg 04/15/2019 12:00:00 AM EST tablet 30 TAKE ONE TABLET BY MOUTH EVERY DAY TAKE ONE TABLET BY MOUTH EVERY DAY SOLD: 06/10/2019 [facility] 25 mg 04/15/2019 12:00:00 AM EST tablet 30 TAKE ONE TABLET BY MOUTH EVERY DAY TAKE ONE TABLET BY MOUTH EVERY DAY SOLD: 06/10/2019 [facility] 25 mg 04/15/2019 12:00:00 AM EST tablet 30 TAKE ONE TABLET BY MOUTH EVERY DAY TAKE ONE TABLET BY MOUTH EVERY DAY SOLD: 04/20/2019 [facility] 25 mg 04/15/2019 12:00:00 AM EST tablet 30 TAKE ONE TABLET BY MOUTH EVERY DAY TAKE ONE TABLET BY MOUTH EVERY DAY SOLD: 05/19/2019 [facility] 25 mg 04/15/2019 12:00:00 AM EST tablet 30 TAKE ONE TABLET BY MOUTH EVERY DAY TAKE ONE TABLET BY MOUTH EVERY DAY SOLD: 04/20/2019 [facility] 25 mg 04/15/2019 12:00:00 AM EST tablet 30 TAKE ONE TABLET BY MOUTH EVERY DAY TAKE ONE TABLET BY MOUTH EVERY DAY SOLD: 05/19/2019 [facility] Spironolactone 25 MG Oral Tablet Spironolactone 25 MG 2018 12:00:00 AM EST active 1 tablet eCW1 ([facility]) Spironolactone 25 MG Oral Tablet Spironolactone 25 MG 2018 12:00:00 AM EST active 1 tablet eCW1 ([facility]) Spironolactone 25 MG Oral Tablet Spironolactone 25 MG 2018 12:00:00 AM EST active 1 tablet eCW1 ([facility]) Insurance Providers Payer name Policy type / Coverage type Policy ID Covered libertarian ID Covered libertarian's relationship to clemens Policy Clemens Plan Information [facility] FEDERAL EMPLOYEE PROGRAM [id number] SP [id number] [facility]/307 [id number] SP [id number] [facility] [id number] [facility] [id number] [facility] [place] [facility] B [id number] S [id number] O UNAVAILABLE UNAVAILA BLE BS [place] [facility] PPO 302/307 [id number] SP [id number] ANSI-Commercial [id number] ANSI-Commercial [id number] ANSI-Commercial [id number] ANSI-Commercial [id number] ANSI-Commercial [id number] ANSI-Commercial [id number] MVP (pr) Commercial [id number] Family Dependent [id number] [facility] (me) Commercial [id number] Family Dependent [id number] [facility] Health Maintenance Organization (O) [id number] Family Dependent [id number] ANSI-Commercial [id number] ANSI-Commercial [id number] ANSI-Commercial [id number] ANSI-Commercial [id number] ANSI-Commercial [id number] ANSI-Commercial [id number] ANSI-Commercial [id number] ANSI-Commercial [id number] ANSI-Commercial [id number] ANSI-Commercial [id number] [facility] [id number] [facility] [id number] ANSI-Commercial [id number] ANSI-Commercial [id number] ANSI-Commercial [id number] ANSI-Commercial [id number] ANSI-Commercial [id number] ANSI-Commercial [id number] ANSI-Commercial [id number] ANSI-Commercial [id number] ANSI-Commercial [id number] ANSI-Commercial [id number] [employer] [place] PPO 302/307 [id number] ANSI-Commercial [id number] ANSI-Commercial [id number] [employer] [place] PPO 302/307 [id number] [employer] B [id number] P [facility] [id number] [employer] Commercial Self [employer] [place] Commercial Self BC BS [place] [facility] [id number] Problems, Conditions, and Diagnoses Code Display Name Description Problem Type Effective Dates Data Source(s) 847229308 Screening for malignant neoplasm of colo n Screening for malignant neoplasm of colon Problem 04/27/2020 12:00:00 AM EST [facility] ([facility]) Results ID Date Data Source [id number] 04/30/2020 12:00:00 PM EST [facility] Name Value Range Interpretation Code Description Data Mckayla rce(s) Supporting Document(s) SARS coronavirus 2 RNA Not Detected [facility] [place] This lab was ordered by [facility] and reported by [facility]. ID Date Data Source [id number] 02/24/2020 09:40:00 AM EST MEDENT ([facility]) Name Value Range Interpretation Code Description Data Mckayla rce(s) Supporting Document(s) Cobalamin (Vitamin B12) [Mass/volume] in Serum or Plasma 459 pg/mL 2 47-911 MEDENT ([facility]) VITAMIN B12 NORMAL RANGE NORMAL 247 - 911 PG/ML INDETERMINATE 211 - 246 PG/ML DEFICIENT LESS THAN 211 PG/ML ID Date Data Source [id number] 02/24/2020 09:39:00 AM EST MEDENT ([facility]) Name Value Range Interpretation Code Description Data Mckayla rce(s) Supporting Document(s) Thyrotropin [Units/volume] in Serum or Plasma by Detec tion limit <= 0.05 mIU/L 0.99 uIU/mL 0.36-3.74 MED[facility] ([facility] ) ID Date Data Source [id number] 02/24/2020 09:39:00 AM EST MEDENT ([facility]) Name Value Range Interpretation Code Description Data Mckayla rce(s) Supporting Document(s) Triglyceride [Mass/volume] in Serum or Plasma 236 mg/dL 30-150 [facility] ([facility]) Cholesterol [Mass/volume] in Serum or Plasma 188 mg/dL 131-200 [facility] ([facility]) Cholesterol in HDL [Mass/volume] in Serum or Plasma 30 mg/dL 35-60 [facility] ([facility]) Cholesterol in LDL [Mass/volume] in Serum or Plasma by calcu lation 111 CALC 50-159 [facility] ([facility]) ID Date Data Source [id number] 02/24/2020 09:39:00 AM EST MEDENT ([facility]) Name Value Range Interpretation Code Description Data Mckayla e(s) Supporting Document(s) Glucose [Mass/volume] in Serum or Plasma 94 mg/dL 74-99 [facility] ([facility]) 100-125 mg/dL PRE-DIABETES/FASTING >126 mg/dL DIABETES/FASTING Creatinine 1.2 mg/dL 0.6-1.3 [facility] ([facility]) Urea nitrogen [Mass/volume] in Serum or Plasma 19 mg/dL 7-18 [facility] ([facility]) Sodium [Moles/volume] in Serum or Plasma 140 meq/L 136-145 [facility] ([facility]) Potassium [Moles/volume] in Serum or Plasma 3.7 meq/L 3.5-5.1 [facility] ([facility]) Carbon dioxide, total [Moles/volume] in Serum or Plasma 34 meq/L 21 -32 [facility] ([facility]) Chloride [Moles/volume] in Serum or Plasma 101 meq/L 98-107 [facility] ([facility]) Calcium [Mass/volume] in Serum or Plasma 9.2 mg/dL 8.5-10.1 [facility] ([facility]) Alkaline phosphatase isoenzyme [Units/volume] in Serum or Pl asma 126 mg/dL 46-116 [facility] Total Bilirubin 0.6 mg/dL 0.2-1.0 [facility] ([facility]) Alanine aminotransferase [Enzymatic activity/volume] in Seru m or Plasma 51 U/L 12-78 [facility] ([facility]) Aspartate aminotransferase [Enzymatic activity/volume] in Serum or Plasma 21 U/L 15-37 [facility] ([facility] ) Proteinase 3 Ab [Units/volume] in Serum 7.1 g/dL 6.4-8.2 [facility] ([facility]) Albumin [Mass/volume] in Serum or Plasma 4.0 g/dL 3.4-5.0 [facility] ([facility]) A/G Ratio 1.29 CALC 1.00-1.90 [facility]) Glomerular filtration rate/1.73 sq M pre dicted among non-blacks [Volume Rate/Area] in Serum or Plasma by Creatinine-based formula (MDRD) Laboratory test result [facility] ([facility] ) Glomerular filtration rate/1.73 sq M pre dicted among blacks [Volume Rate/Area] in Serum or Plasma by Creatinine-based formula (MDRD) Laboratory test result [facility] <content>CHRONIC KIDNEY DISEASE STAGING PER NKF</content>
<content></content>
<content>STAGE I & II GFR >= 60 NORMAL TO MILDLY DECREASED</content>
<content>STAGE III GFR 30-59 MODERATELY DECREASED</content>
<content>STAGE IV GFR 15-29 SEVERELY DECREASED</content>
<content>STAGE V GFR <15 VERY LITTLE GFR LEFT</content>
<content>ESRD GFR <15 ON PRINTMAKER</content>
<content></content> ID Date Data Source [id number] 02/24/2020 09:39:00 AM EST [facility] Name Value Range Interpretation Code Description Data Mckayla rce(s) Supporting Document(s) Leukocytes [#/volume] in Blood by Automated count 6.6 x10*3/UL 4.1-10 .9 [facility] ([facility]) Erythrocytes [#/volume] in Blood by Automated count 5.69 x10*6/UL 4.2 0-6.30 [facility] Hemoglobin [Mass/volume] in Blood 17.1 g/dL 12.0-18.0 [facility] ([facility]) Hematocrit [Volume Fraction] of Blood by Automated count 49.3 % 3 7.0-51.0 [facility] ([facility]) MCH 30.1 pg 26.0-32.0 [facility] MCV 86.6 fL 80.0-97.0 [facility] Platelets [#/volume] in Blood by Automated count 231 x10*3/UL 140-440 [facility] Erythrocyte distribution width [Ratio] by Automated count 13.1 % 11.6-13.7 [facility] ([facility]) MCHC 34.7 g/dL 31.0-38.0 [facility] Mid % 7.8 % 1.7-9.3 [facility] Lymph % 33.8 % 10.0-58.5 [facility] MPV 9.5 FL 7.8-11.0 [facility] Lymph # 2.2 x10*3/UL 0.6-4.1 [facility] ([facility]) Neut % 58.4 % 37.0-92.0 [facility] Mid # 0.5 x10*3/UL 0.1-0.6 [facility] ([facility]) Neut # 3.9 x10*3/UL 2.0-7.8 [facility] ([facility]) Procedure Social History Code Duration Value Status Description Data Source(s ) Smoking 09/01/2019 12:00:00 AM EDT Never Smoker completed Never S moker eCW1 (Formerly [facility]) Smoking 09/01/2019 12:00:00 AM EDT Never Smoker completed Never S moker eCW1 (Formerly [facility]) Vital Signs ID Date Data Source UNK Name Value Range Interpretation Code Description Data Source(s) Body temperature 98.1 [degF] 98.1 [degF] [facility] ([facility]) Body weight 117.029 kg 117.029 kg [facility] Body mass index (BMI) [Ratio] 37.0 kg/m2 37.0 k g/m2 [facility] ([facility]) Heart rate 62 /min 62 /min [facility]) Diastolic blood pressure 83 mm[Hg] 83 mm[Hg] [facility] ([facility]) Systolic blood pressure 129 mm[Hg] 129 mm[Hg] M [facility] ([facility]) Body weight 258.00 [lb_av] 258.00 [lb_av] [facility] T ([facility]) Body height 70 [in_i] 70 [in_i] [facility] 5'10" Body mass index (BMI) [Ratio] 36.7 kg/m2 36.7 k g/m2 [facility] ([facility]) Oxygen saturation in Arterial blood by Pulse oximetry 98 % 98 % [facility] ([facility]) Body weight 256.00 [lb_av] 256.00 [lb_av] [facility] T ([facility]) Body height 70 [in_i] 70 [in_i] [facility] ([facility]) 5'10" Heart rate 68 /min 68 /min [facility] ([facility]) Diastolic blood pressure 68 mm[Hg] 68 mm[Hg] [facility] ([facility]) Systolic blood pressure 120 mm[Hg] 120 mm[Hg] M [facility]ENT ([facility]) Diastolic blood pressure 92 mm[Hg] 92 mm[Hg] eCW1 ([facility]) Systolic blood pressure 142 mm[Hg] 142 mm[Hg] e CW1 ([facility]) Body temperature 98.5 [degF] 98.5 [degF] eCW1 ( [facility]) Respiratory rate 20 /min 20 /min eCW1 ([facility]) Heart rate 84 /min 84 /min eCW1 ([facility]) Body mass index (BMI) [Ratio] 36.58 kg/m2 36.58 kg/m2 W1 ([facility]) Body height 70 [in_i] 70 [in_i] eCW1 ([facility]) Body weight 255 [lb_av] 255 [lb_av] eCW1 ([facility]) Diastolic blood pressure 100 mm[Hg] 100 mm[Hg] eCW1 ([facility]) Systolic blood pressure 140 mm[Hg] 140 mm[Hg] e CW1 ([facility]) Body temperature 97.9 [degF] 97.9 [degF] eCW1 ( [facility]) Respiratory rate 20 /min 20 /min eCW1 ([facility]) Heart rate 83 /min 83 /min eCW1 ([facility]) Body mass index (BMI) [Ratio] 36.87 kg/m2 36.87 kg/m2 eCW1 ([facility]) Body height 70 [in_us] 70 [in_us] eCW1 ([facility]) Body weight Measured 257 [lb_av] 257 [lb_av] eC W1 ([facility]) Patient Treatment Plan of Care Planned Activity Planned Date Details Description Data Source (s) Meclizine Hydrochloride 25 MG Oral Tablet 09/01/2019 12:00:00 AM ED T eCW1 ([facility]) Spironolactone 25 MG Oral Tablet 03/11/2019 12:00:00 AM EST eCW1 ([facility]) Spironolactone 25 MG Oral Tablet 03/11/2019 12:00:00 AM EST eCW1 ([facility]) Spironolactone 25 MG Oral Tablet 03/11/2019 12:00:00 AM EST eCW1 ([facility])
--- NOTE | 2020-05-05 13:46 | ROOR ---
Patient Name: Ti Sampson Procedure Date: 05/05/2020 1:23 PM Date of : 1970 Age: 49 Room: [facility] Gender: Male Note Status: Finalized Procedure: Total Colonoscopy to Cecum Indications: Screening for colorectal malignant neoplasm Providers: Faheem Laird MD Referring MD: Lynda Griffith NP Requesting Provider: Medicines: Monitored Anesthesia Care Complications: No immediate complications. Procedure: Pre-Anesthesia Assessment: - The heart rate, respiratory rate, oxygen saturations, blood pressure, adequacy of pulmonary ventilation, and response to care were monitored throughout the procedure. The Colonoscope was introduced through the anus and advanced to the cecum, identified by appendiceal orifice and ileocecal valve. The colonoscopy was performed without difficulty. The patient tolerated the procedure well. The quality of the bowel preparation was excellent. Findings: The perianal and digital rectal examinations were normal. Non-bleeding internal hemorrhoids were found during retroflexion. The hemorrhoids were small and Grade I (internal hemorrhoids that do not prolapse). Multiple small and large-mouthed diverticula were found in the recto-sigmoid colon, sigmoid colon and descending colon. The exam was otherwise without abnormality on direct and retroflexion views. Impression: - Non-bleeding internal hemorrhoids. - Diverticulosis in the recto-sigmoid colon, in the sigmoid colon and in the descending colon. - The examination was otherwise normal on direct and retroflexion views. - No specimens collected. - The exam was otherwise normal to the cecum. Recommendation: - Patient has a contact number available for emergencies. The signs and symptoms of potential delayed complications were discussed with the patient. Return to normal activities tomorrow. Written discharge instructions were provided to the patient. - High fiber diet. - Discharge patient to home. - Continue present medications. - Repeat colonoscopy in 10 years for screening purposes. - Return to referring physician. - The findings and recommendations were discussed with the patient. Procedure Code(s): --- Professional --- 82855, Colonoscopy, flexible; diagnostic, including collection of specimen(s) by brushing or washing, when performed (separate procedure) Diagnosis Code(s): --- Professional --- Z12.11, Encounter for screening for malignant neoplasm of colon K64.0, First degree hemorrhoids K57.30, Diverticulosis of large intestine without perforation or abscess without bleeding CPT copyright 2019 [employer]. All rights reserved. The codes documented in this report are preliminary and upon mold mechanic review may be revised to meet current compliance requirements. Faheem Laird MD Faheem Laird MD 05/05/2020 1:46:11 PM Electronically signed by Faheem Laird MD Number of Addenda: 0 Note Initiated On: 05/05/2020 1:23 PM Estimated Blood Loss: Estimated blood loss: none.
[2020-05-05 14:10] VITALS: BP 128/91
== END 2020-05-05 14:20 | disposition home or self-care (01) ==
LOC: M OPP 11:50
PROVIDERS: ATTEND Internal Medicine Gastroenterology
DX: Z12.11 Encounter for screening for malignant neoplasm of colon (principal); K64.0 First degree hemorrhoids; K57.30 Diverticulosis of large intestine without perforation or abscess without bleeding; I10 Essential (primary) hypertension; G47.30 Sleep apnea, unspecified; Z79.899 Other long term (current) drug therapy

== ENCOUNTER 2021-08-05 12:51 | Emergency (ER) | payer BC ==
[~2021-08-05] VITALS: Ht 177.8 cm; Wt 113.0 kg
[~2021-08-05 12:51] MED LIST changes: -NS 1,000 ML IV ONE; +OMEP-173 PO; -OMEP-218 PO
[2021-08-05] MEDS ORDERED: IBUPROFEN 600MG TAB PO ONE (15:25)
[2021-08-05 15:36] LABS: HEMATOCRIT 52.1 % (42.0-52.0); HEMOGLOBIN 17.9 g/dl (13.5-17.5); MEAN CORPUSCULAR HEMOGLOBIN 30.2 pg (27.0-33.0); MEAN CORPUSCULAR HGB CONC 34.4 g/dl (32.0-36.5); PLATELET COUNT, AUTOMATED 237 10^3/uL (150-450); RED BLOOD COUNT 5.92 10^6/uL (4.30-6.10)
[2021-08-05 15:57] LABS: AMPHETAMINES LEVEL URINE NEGATIVE (NEGATIVE); BARBITURATES URINE NEGATIVE (NEGATIVE); BENZODIAZEPINES URINE NEGATIVE (NEGATIVE); CANNABINOIDS URINE NEGATIVE (NEGATIVE); COCAINE METABOLITE URINE NEGATIVE (NEGATIVE); METHADONE URINE NEGATIVE (NEGATIVE); OPIATES URINE NEGATIVE (NEGATIVE); PHENCYCLIDINE URINE NEGATIVE (NEGATIVE)
[2021-08-05 16:04] LABS: RSV AMPLIFICATION NEGATIVE (NEGATIVE)
[2021-08-05 16:09] LABS: ACETAMINOPHEN LEVEL < 2.0 UG/ML (10.0-30.0); ALBUMIN 4.2 GM/DL (3.2-5.2); ALT/SGPT 54 U/L (12-78); BILIRUBIN,DIRECT 0.2 MG/DL (0.0-0.2); BILIRUBIN,TOTAL 0.8 MG/DL (0.2-1.0); BLOOD UREA NITROGEN 16 MG/DL (7-18); CALCIUM LEVEL 9.7 MG/DL (8.5-10.1); CARBON DIOXIDE LEVEL 33 MEQ/L (21-32); CHLORIDE LEVEL 102 MEQ/L (98-107); CREATININE FOR GFR 1.13 MG/DL (0.70-1.30); ETHYL ALCOHOL (ETHANOL) < 0.003 % (0.000-0.010); GLOMERULAR FILTRATION RATE > 60.0 (>56); GLUCOSE, FASTING 98 MG/DL (70-100); POTASSIUM SERUM 3.5 MEQ/L (3.5-5.1); SALICYLATE LEVEL < 1.7 MG/DL (5.0-30.0); SODIUM LEVEL 140 MEQ/L (136-145); THYROID STIMULATING HORMONE 0.811 uIU/ML (0.358-3.740); TOTAL PROTEIN 7.4 GM/DL (6.4-8.2)
[2021-08-05] MEDS ORDERED: SERT50TA29 PO (17:28)
[2021-08-05] MEDS ORDERED: HOME MED LIST COMPLETE! XX SCH (17:30)
[2021-08-06] MEDS ORDERED: IBUPROFEN 600MG TAB PO ONE (06:15)
[2021-08-06] MEDS: OMEPRAZOLE 20MG CAP PO SCH (09:01)
[2021-08-06] MEDS: VALSARTAN 80 MG TAB (DIOVAN) PO SCH (09:02)
[2021-08-06] MEDS: SERTRALINE HCL 25 MG TABLET PO SCH (09:02)
[2021-08-06] MEDS: CHLORTHALIDONE 25 MG TAB PO SCH (09:02)
[2021-08-07] MEDS: CHLORTHALIDONE 25 MG TAB PO SCH (09:43)
[2021-08-07] MEDS: OMEPRAZOLE 20MG CAP PO SCH (09:43)
[2021-08-07] MEDS: SERTRALINE HCL 25 MG TABLET PO SCH (09:43)
[2021-08-07 09:44] VITALS: BP 152/91
[2021-08-07] MEDS: VALSARTAN 80 MG TAB (DIOVAN) PO SCH (09:44)
[2021-08-07 14:12] LABS: RSV AMPLIFICATION NEGATIVE (NEGATIVE)
[2021-08-08] MEDS: CHLORTHALIDONE 25 MG TAB PO SCH (09:13)
[2021-08-08] MEDS: VALSARTAN 80 MG TAB (DIOVAN) PO SCH (09:13)
[2021-08-08] MEDS: SERTRALINE HCL 25 MG TABLET PO SCH (09:13)
[2021-08-08] MEDS: OMEPRAZOLE 20MG CAP PO SCH (09:13)
[2021-08-08 13:04] VITALS: BP 142/87
== END 2021-08-08 13:25 ==
LOC: M ED 12:51
DX: R45.851 Suicidal ideations (principal); F32.A Depression, unspecified; R94.31 Abnormal electrocardiogram [ECG] [EKG]; I10 Essential (primary) hypertension; E78.5 Hyperlipidemia, unspecified; K21.9 Gastro-esophageal reflux disease without esophagitis; F10.10 Alcohol abuse, uncomplicated

== ENCOUNTER → 2021-09-05 | Outpatient (REF) | payer BC, OTHER ==
[~2021-09-05] MED LIST changes: +SERT50TA29 PO
[2021-09-07 10:31] LABS: LDL DIRECT 92 mg/dL (0-99)
== END ==
LOC: M LAB REF 11:29
PROVIDERS: ATTEND Nurse Practitioner Adult Health
DX: E78.5 Hyperlipidemia, unspecified (principal)

== ENCOUNTER 2021-11-01 09:59 | Emergency (ER) | payer BC, OTHER ==
[~2021-11-01] VITALS: Ht 177.8 cm; Wt 116.2 kg
[2021-11-01] MEDS ORDERED: HYDR-3363 (10:06)
[2021-11-01] MEDS ORDERED: ATOR1TAB21 (10:06)
[2021-11-01] MEDS ORDERED: RISP-7 (10:06)
[2021-11-01] MEDS ORDERED: MECL-86 PO (11:23)
[2021-11-01 13:48] VITALS: BP 132/88
== END 2021-11-01 13:49 | disposition home or self-care (01) ==
LOC: M ED 09:59
DX: R42 Dizziness and giddiness (principal); R00.1 Bradycardia, unspecified; I45.10 Unspecified right bundle-branch block; F32.A Depression, unspecified; I10 Essential (primary) hypertension; G47.33 Obstructive sleep apnea (adult) (pediatric); Z79.84 Long term (current) use of oral hypoglycemic drugs; Z79.899 Other long term (current) drug therapy; Z79.811 Long term (current) use of aromatase inhibitors

== ENCOUNTER → 2022-02-07 | Outpatient (CLI) | payer BC ==
[~2022-02-07] MED LIST changes: +ATOR1TAB21; +HYDR-3363; +PROHANCE 279.3MG/ML 15ML VIAL As Ordered ONE; +PROHANCE 279.3MG/ML 5ML VIAL As Ordered ONE; +RISP-7
== END ==
LOC: M RAD 15:46
PROVIDERS: ATTEND Otolaryngology
DX: H91.93 Unspecified hearing loss, bilateral (principal)
CPT/HCPCS: 70553; A9576

== ENCOUNTER → 2022-03-29 | Outpatient (CLI) | payer BC ==
[~2022-03-29] MED LIST changes: -PROHANCE 279.3MG/ML 15ML VIAL As Ordered ONE; -PROHANCE 279.3MG/ML 5ML VIAL As Ordered ONE
[2022-03-29 16:48] LABS: HEMOGLOBIN A1c 5.7 % (4.0-6.0)
[2022-03-29 17:03] LABS: TOTAL PROTEIN 6.9 GM/DL (6.4-8.2)
[2022-03-29 17:07] LABS: FOLATE 18.8 NG/ML (>5.4)
[2022-03-29 17:08] LABS: FREE T4 1.11 NG/DL (0.89-1.76); RHEUMATOID FACTOR QUANT 5.4 IU/ML (<14)
[2022-03-29 17:10] LABS: THYROID STIMULATING HORMONE 0.575 uIU/ML (0.55-4.78)
== END ==
LOC: M WUC 11:10
PROVIDERS: ATTEND Psychiatry & Neurology Neurology
DX: R51.9 Headache, unspecified (principal); R20.2 Paresthesia of skin; R42 Dizziness and giddiness; G60.9 Hereditary and idiopathic neuropathy, unspecified

== ENCOUNTER → 2022-04-10 | Outpatient (CLI) | payer BC ==
[2022-04-10 17:08] LABS: BLOOD UREA NITROGEN 22 MG/DL (9-23); CALCIUM LEVEL 9.2 MG/DL (8.5-10.1); CARBON DIOXIDE LEVEL 29 MMOL/L (20-31); CHLORIDE LEVEL 98 MMOL/L (98-107); CREATININE FOR GFR 1.09 MG/DL (0.70-1.30); GLOMERULAR FILTRATION RATE > 60.0 (>56); GLUCOSE, FASTING 99 MG/DL (60-100); SODIUM LEVEL 135 MMOL/L (136-145)
== END ==
LOC: M WUC 14:03
PROVIDERS: ATTEND Student in an Organized Health Care Education/Training Program
DX: M62.81 Muscle weakness (generalized) (principal)

== ENCOUNTER 2022-08-04 09:24 | Emergency (ER) | payer BC ==
[~2022-08-04] VITALS: Ht 177.8 cm; Wt 119.9 kg
[2022-08-04] MEDS ORDERED: KETOROLAC 30 MG/ML 1ML VIAL IV ONE (12:10)
[2022-08-04 12:34] LABS: BASO % 0.5 % (0.0-1.0); EOS # 0.2 10^3/uL (0.0-0.5); HEMATOCRIT 50.3 % (42.0-52.0); HEMOGLOBIN 16.6 g/dl (13.5-17.5); LYMPH # 2.4 10^3/uL (1.5-5.0); LYMPH % 31.3 % (24.0-44.0); MEAN CORPUSCULAR HEMOGLOBIN 29.4 pg (27.0-33.0); MEAN CORPUSCULAR VOLUME 89.2 fl (80.0-96.0); MONO # 0.6 10^3/uL (0.0-0.8); MONO % 8.3 % (2.0-8.0); NEUTROPHILS # 4.3 10^3/uL (1.5-8.5); NEUTROPHILS % 56.6 % (36.0-66.0); PLATELET COUNT, AUTOMATED 197 10^3/uL (150-450); RED BLOOD COUNT 5.64 10^6/uL (4.30-6.10); WHITE BLOOD COUNT 7.6 10^3/uL (4.0-10.0)
[2022-08-04 12:39] LABS: GC DNA AMPLIFICATION NEGATIVE (NEGATIVE)
[2022-08-04 12:58] LABS: LIPASE 25 U/L (12-53)
[2022-08-04 12:59] LABS: ALBUMIN 3.8 G/DL (3.2-5.2); ALKALINE PHOSPHATASE 120 U/L (46-116); ALT/SGPT 54 U/L (7.0-40); AST/SGOT 22 U/L (<34); BILIRUBIN,DIRECT 0.3 MG/DL (<0.4); BILIRUBIN,TOTAL 0.8 MG/DL (0.3-1.2); TOTAL PROTEIN 6.7 G/DL (5.7-8.2)
[2022-08-04 13:23] LABS: BLOOD UREA NITROGEN 14 MG/DL (9-23); CALCIUM LEVEL 9.1 MG/DL (8.5-10.1); CARBON DIOXIDE LEVEL 31 MMOL/L (20-31); CHLORIDE LEVEL 105 MMOL/L (98-107); GLOMERULAR FILTRATION RATE > 60.0 (>56); GLUCOSE, FASTING 89 MG/DL (60-100); POTASSIUM SERUM 4.6 MMOL/L (3.5-5.1); SODIUM LEVEL 140 MMOL/L (136-145)
[2022-08-04] MEDS ORDERED: ISOVUE-370 76% 100ML VIAL As Ordered ONE (13:26)
[2022-08-04 14:37] VITALS: BP 168/100
== END 2022-08-04 14:45 | disposition home or self-care (01) ==
LOC: M ED 09:24
DX: K40.90 Unilateral inguinal hernia, without obstruction or gangrene, not specified as recurrent (principal); I10 Essential (primary) hypertension; F32.A Depression, unspecified; Z79.02 Long term (current) use of antithrombotics/antiplatelets; Z79.83 Long term (current) use of bisphosphonates; Z79.899 Other long term (current) drug therapy
CPT/HCPCS: 74177; 80048; 80076; 81001; 83690; 85025; 87086; 87661; 87810; 87850; 96374; 99284; J1885; Q9967

== ENCOUNTER → 2022-08-08 | Outpatient (CLI) | payer BC | LOC: M WUC 13:58 | PROVIDERS: ATTEND Physician Assistant | DX: R42 Dizziness and giddiness (principal) ==

== ENCOUNTER 2022-10-04 05:54 | Emergency (ER) | payer BC ==
[~2022-10-04] VITALS: Ht 177.8 cm; Wt 116.2 kg
[2022-10-04 06:41] LABS: BASO # 0.1 10^3/uL (0.0-0.2); BASO % 0.6 % (0.0-1.0); EOS # 0.2 10^3/uL (0.0-0.5); EOS % 2.7 % (0.0-3.0); HEMATOCRIT 48.4 % (42.0-52.0); HEMOGLOBIN 16.2 g/dl (13.5-17.5); LYMPH # 2.6 10^3/uL (1.5-5.0); LYMPH % 33.3 % (24.0-44.0); MEAN CORPUSCULAR HEMOGLOBIN 29.7 pg (27.0-33.0); MEAN CORPUSCULAR HGB CONC 33.5 g/dl (32.0-36.5); MEAN CORPUSCULAR VOLUME 88.8 fl (80.0-96.0); MONO # 0.6 10^3/uL (0.0-0.8); NEUTROPHILS # 4.2 10^3/uL (1.5-8.5); PLATELET COUNT, AUTOMATED 197 10^3/uL (150-450); RED BLOOD COUNT 5.45 10^6/uL (4.30-6.10); WHITE BLOOD COUNT 7.7 10^3/uL (4.0-10.0)
[2022-10-04 07:15] LABS: LIPASE 27 U/L (12-53)
[2022-10-04 07:17] LABS: ALBUMIN 3.9 G/DL (3.2-5.2); ALKALINE PHOSPHATASE 132 U/L (46-116); ALT/SGPT 50 U/L (7.0-40); AST/SGOT 27 U/L (<34); BILIRUBIN,TOTAL 0.7 MG/DL (0.3-1.2); BLOOD UREA NITROGEN 14 MG/DL (9-23); CALCIUM LEVEL 8.9 MG/DL (8.5-10.1); CARBON DIOXIDE LEVEL 29 MMOL/L (20-31); CHLORIDE LEVEL 104 MMOL/L (98-107); CREATININE FOR GFR 1.04 MG/DL (0.70-1.30); GLOMERULAR FILTRATION RATE > 60.0 (>56); GLUCOSE, FASTING 103 MG/DL (60-100); SODIUM LEVEL 139 MMOL/L (136-145); TOTAL PROTEIN 6.6 G/DL (5.7-8.2)
[2022-10-04] MEDS ORDERED: IBUPROFEN 800 MG TAB PO ONE (07:50)
[2022-10-04] MEDS ORDERED: ISOVUE-370 76% 100ML VIAL As Ordered ONE (09:09)
[2022-10-04 12:40] VITALS: BP 155/88; TEMP 97.8; O2SAT 98
== END 2022-10-04 12:45 | disposition home or self-care (01) ==
LOC: M ED 05:54
DX: K56.7 Ileus, unspecified (principal); N28.1 Cyst of kidney, acquired; I10 Essential (primary) hypertension; F41.9 Anxiety disorder, unspecified; E78.5 Hyperlipidemia, unspecified; Z79.02 Long term (current) use of antithrombotics/antiplatelets; Z79.899 Other long term (current) drug therapy
CPT/HCPCS: 36415; 74177; 76857; 80053; 81001; 83690; 85025; 99284; Q9967

== ENCOUNTER → 2023-09-28 | Outpatient (CLI) | payer BC ==
[~2023-09-28] MED LIST changes: +PROHANCE 279.3MG/ML 15ML VIAL As Ordered ONE; +PROHANCE 279.3MG/ML 5ML VIAL As Ordered ONE; -RISP-7; +RISP0.5T82
== END ==
LOC: M RAD 15:39
PROVIDERS: ATTEND Otolaryngology
DX: R42 Dizziness and giddiness (principal)
CPT/HCPCS: 70553; A9576